=== PATIENT | male | born 1995 | race Caucasian/White ===

== ENCOUNTER 2018-02-16 16:26 | Emergency (ER) | payer OTHER, MEDICAID ==
[2018-02-16] MEDS: NORCO, ANEXSIA 5/325MG TABLET (HYDROcodone/ACETAMINOPHEN) PO (17:36)
[2018-02-16] MEDS: ADACEL/BOOSTRIX VACCINE (DIPHTH/PERTUSS/ACELL/TETANUS)0.5ML SYR (90715) IM (17:36)
== END 2018-02-16 18:30 | disposition home or self-care (01) ==
LOC: M ED 18:30
DX: S01.01XA Laceration without foreign body of scalp, initial encounter (principal); S40.012A Contusion of left shoulder, initial encounter; S80.02XA Contusion of left knee, initial encounter; W11.XXXA Fall on and from ladder, initial encounter; Y92.89 Other specified places as the place of occurrence of the external cause; Z91.030 Bee allergy status
CPT/HCPCS: 90715

== ENCOUNTER 2019-01-25 09:59 | Emergency (ER) | payer OTHER ==
[~2019-01-25] VITALS: Ht 175.3 cm; Wt 98.1 kg
[2019-01-25] MEDS ORDERED: CETI5SOL3 PO (10:04)
[2019-01-25 11:14] LABS: BASO % 0.4 % (0.0-1.0); EOS # 0.1 10^3/uL (0.0-0.50); EOS % 0.5 % (0.0-3.0); HEMATOCRIT 47.3 % (42.0-52.0); LYMPH # 1.1 10^3/uL (1.5-6.5); LYMPH % 11.5 % (24.0-44.0); MEAN CORPUSCULAR HEMOGLOBIN 30.1 pg (27.0-33.0); MEAN CORPUSCULAR HGB CONC 33.8 g/dl (32.0-36.5); MEAN CORPUSCULAR VOLUME 89.1 fl (80.0-96.0); MONO # 0.4 10^3/uL (0.0-0.8); MONO % 4.6 % (0.0-5.0); NEUTROPHILS # 7.6 10^3/uL (1.8-7.7); NEUTROPHILS % 82.6 % (36.0-66.0); PLATELET COUNT, AUTOMATED 307 10^3/uL (150-450); RED BLOOD COUNT 5.31 10^6/uL (4.30-6.10); WHITE BLOOD COUNT 9.2 10^3/uL (4.0-10.0)
[2019-01-25] MEDS ORDERED: NS 1,000 ML IV ONE (11:15)
[2019-01-25 11:31] LABS: BLOOD UREA NITROGEN 12 MG/DL (7-18); CALCIUM LEVEL 9.3 MG/DL (8.5-10.1); CARBON DIOXIDE LEVEL 28 MEQ/L (21-32); CHLORIDE LEVEL 106 MEQ/L (98-107); CREATININE FOR GFR 1.05 MG/DL (0.70-1.30); GLOMERULAR FILTRATION RATE > 60.0 (>60); GLUCOSE, FASTING 115 MG/DL (70-100); POTASSIUM SERUM 3.6 MEQ/L (3.5-5.1); SODIUM LEVEL 140 MEQ/L (136-145)
[2019-01-25] MEDS ORDERED: ISOVUE-370 76% 100ML VIAL (Q9967) As Ordered ONE (12:01)
--- NOTE | 2019-01-25 12:44 | REP ---
CT abdomen and pelvis with IV but without oral contrast: History: Right lower quadrant pain. Rule out appendicitis. No comparison study. CT contrast dose: 100 mL of intravenous Isovue 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 Normal bowel gas pattern. The lung bases are clear on axial CT images. The liver and the spleen are normal in size and homogeneous in texture. No adrenal lesion is seen. No abnormality is noted in the pancreas or gallbladder. The kidneys enhance symmetrically and are morphologically intact. No retroperitoneal mass is seen. A normal appendix is seen without appendiceal or periappendiceal inflammation. There are however some right lower quadrant mesenteric lymph nodes noted. None of these is pathologically enlarged, the largest measures 9 mm in short axis dimension. Small and large intestinal bowel loops are normal in the abdomen and pelvis. Urinary bladder, seminal vesicles, and prostate are unremarkable. Impression: Normal appendix seen. There are a few right lower quadrant mesenteric lymph nodes none of which is pathologically enlarged. Otherwise negative CT study abdomen and pelvis. Electronically Signed by Mick Moore MD 01/25/2019 02:50 P
[2019-01-25 12:46] VITALS: BP 144/60
== END 2019-01-25 12:52 | disposition home or self-care (01) ==
LOC: M ED 09:59
DX: R10.31 Right lower quadrant pain (principal); Z91.030 Bee allergy status
CPT/HCPCS: 74177; 80048; 81001; 85025; 96360; 99284; Q9967

== ENCOUNTER 2022-07-02 10:18 | Emergency (ER) | payer OTHER ==
[~2022-07-02 10:18] MED LIST: CETI5SOL3 PO
[2022-07-02 10:19] VITALS: BP 143/83
[2022-07-02] MEDS ORDERED: FLUORESCEIN OPHTH 1 MG STRIP OD ONE (12:00)
[2022-07-02] MEDS ORDERED: PROPARACAINE 0.5% OPHTH SOL 15ML OD ONE (12:00)
[2022-07-02] MEDS ORDERED: ERYTHROMYCIN OPHTH OINT OD ONE (12:30)
[2022-07-02] MEDS ORDERED: MOXI0.5S OD (12:38)
[2022-07-02] MEDS ORDERED: BOOSTRIX/ADACEL VACCINE (DIPHTH/PERTUSS/ACELL/TETANUS) 0.5ML SYR IM ONE (12:40)
== END 2022-07-02 13:24 | disposition home or self-care (01) ==
LOC: M ED 10:18
DX: T15.01XA Foreign body in cornea, right eye, initial encounter (principal); Y99.0 Civilian activity done for income or pay; Y93.89 Activity, other specified; F17.200 Nicotine dependence, unspecified, uncomplicated; Z79.899 Other long term (current) drug therapy; Z91.030 Bee allergy status